=== PATIENT | female | born 1995 | race Caucasian/White ===

== ENCOUNTER 2016-10-11 19:16 | Emergency (ER) | payer BC ==
[~2016-10-11] VITALS: Ht 154.9 cm; Wt 93.2 kg
[~2016-10-11 19:16] MED LIST: AMOX500T PO; IBUP-1542 PO; PREN-39 PO
[2016-10-11 19:22] VITALS: Ht 154.9 cm; Wt 93.2 kg
--- NOTE | 2016-10-11 22:17 | RADRPT ---
PROCEDURE: XR Hand. CLINICAL INDICATION: Trauma. Pain. TECHNIQUE: Three views of the right hand were obtained. COMPARISON: No prior studies are available for comparison. FINDINGS: There is soft tissue swelling overlying the proximal aspect of the second digit. No fracture is ankit ntified. Joint relationships are maintained. Bone mineralization is within normal limits. Soft ti ssues are otherwise unremarkable. IMPRESSION: Soft tissue swelling overlying the proximal second digit without underlying fracture, dislocation or radiopaque foreign body. RPTAT: [facility] .Elmer Way MD, Date Time Electronically viewed and signed by .Elmer Way MD, on 10/11/2016 22:17 .K/
[2016-10-11] MEDS ORDERED: CEPH-443 PO (22:46)
[2016-10-11] MEDS ORDERED: BACTDS PO (22:46)
[2016-10-11] MEDS ORDERED: IBUP-1542 PO (22:47)
[2016-10-11] MEDS ORDERED: TRIMETHOPRIM/SULFAMETHOX (DS) TAB PO ONE (23:00)
[2016-10-11] MEDS ORDERED: CEPHALEXIN 500 MG CAP PO ONE (23:00)
--- NOTE | 2016-10-12 00:04 | ERD ---
ER Documentation Chief Complaint Date/Time DATE: 10/11/16 TIME: 23:59 Chief Complaint RT HAND PAIN W/ SWELLING X2 DAYS HPI This is a 20-year-old female presents to the ER with right second digit pain for the last 2 days. Patient states that 4 days ago she was getting ready to go out when she felt that she cut her second digit. She did not make much of it however the area has been getting more swollen and painful as the days go by. Patient does not have any direct trauma to the area. She did not fall. Patient denies any fevers or chills. Pain is dull and constant and is worse whenever she moves her second digit. Patient denies any numbness or tingling of her finger. ROS 12 point review of systems was done, all negative except per HPI. Medications Home Meds Active Scripts Ibuprofen* (Motrin*) 600 Mg Tab, 600 MG PO Q6, #30 TAB Prov:DEVAN MOHAMUD 10/11/16 Cephalexin* (Keflex*) 500 Mg Capsule, 500 MG PO QID for 7 Days, CAP Prov:DEVAN MOHAMUD 10/11/16 Sulfamethoxazole-Trimethoprim* (Bactrim* DS) 800-160 Mg Tab, 1 TAB PO BID for 7 Days, TAB Prov:DEVAN MOHAMUD 10/11/16 Ibuprofen* (Motrin*) 600 Mg Tab, 600 MG PO Q6, #30 TAB Prov:RAHUL NEFF PA-C 06/11/16 Reported Medications Amoxicillin Trihydrate (Amoxicillin) 500 Mg Tablet, 500 MG PO BID, TAB 07/15/15 Vits W-Ca,Fe,Fa(<1MG) ( Vitamins) 1 Tab Tablet, 1 TAB PO DAILY 06/22/15 Allergies Allergies: Coded Allergies: No Known Allergies (Unverified Allergy, Unknown, 10/11/16) PMhx/Soc Medical and Surgical Hx: pt denies Medical Hx, pt denies Surgical Hx Hx Alcohol Use: No Hx Substance Use: No Hx Tobacco Use: No Smoking Status: Never smoker Physical Exam Vitals Vital Signs Date Time Temp Pulse Resp B/P Pulse Ox O2 Delivery O2 Flow Rate FiO2 10/11/16 19:22 97.4 64 18 97/50 96 Physical Exam GENERAL: The patient is well developed and appropriate for usual state of health , in no apparent distress. HEENT: Atraumatic CHEST: Clear to auscultation bilaterally. There are no rales, wheezes or rhonchi. HEART: Regular rate and rhythm. No murmurs, clicks, rubs or gallops. EXTREMITIES: Right second digit is tender to palpation at the interphalangeal joint there is some swelling seen. Area of redness and some warmth. Patient has full passive range of motion. DTP and DTS are intact. Radial, ulnar and median never are intact NEURO: Alert and oriented. SKIN: The skin is warm and dry. Results 24 hrs Current Medications Medications (Trade) Dose Ordered Sig/Mark Route PRN Reason Start Time Stop Time Status Last Admin Dose Admin Trimethoprim/ Sulfamethoxazole (Bactrim (Ds)) 1 tab ONCE ONCE PO 10/11/16 23:00 10/11/16 23:01 DC 10/11/16 22:39 Cephalexin (Keflex) 500 mg ONCE ONCE PO 10/11/16 23:00 10/11/16 23:01 DC 10/11/16 22:39 Procedures/MDM This is a 20-year-old female presents to the ER with right second digit pain and swelling that started 2 days ago. This is likely related to cut that patient obtained. I examined this patient and so did . Patient will be given that the first dose of antibiotics here. Patient will be sent home with Keflex and Bactrim. At this time there is no evidence of fracture or dislocation. Suspicion for septic joint or osteomyelitis is low. Patient is afebrile and well-appearing. She has normal range of motion of her finger. I shared my medical decision making with the patient she understands and agrees with plan. Departure Diagnosis: Primary Impression: Pain of hand Condition: Stable Patient Instructions: Cellulitis Additional Instructions: Call your primary care doctor TOMORROW for an appointment during the next 1-2 days.See the doctor sooner or return here if your condition worsens before your appointment time. DEVAN MOHAMUD Oct 12, 2016 00:04
== END 2016-10-11 23:15 | disposition home or self-care (01) ==
LOC: FTE 19:16
DX: M79.644 Pain in right finger(s) (principal)
CPT/HCPCS: 73130; Z7610